=== PATIENT | male | born 1990 | race Two or more races ===

== ENCOUNTER 2022-02-25 00:32 | Emergency (ER) | payer SELFPAY ==
[~2022-02-25] VITALS: Ht 170.2 cm; Wt 70.0 kg
[2022-02-25 01:40] VITALS: BP 148/84
== END 2022-02-25 02:36 ==
LOC: ER 00:32
DX: Z02.79 Encounter for issue of other medical certificate (principal); R06.02 Shortness of breath
CPT/HCPCS: 99283